=== PATIENT | male | born 1970 | race Two or more races ===

== ENCOUNTER 2023-08-02 08:17 | Emergency (ER) | payer OTHER ==
[~2023-08-02] VITALS: Ht 162.6 cm; Wt 63.5 kg
[2023-08-02] MEDS ORDERED: NORVASC2.5 M1 PO (08:31)
== END 2023-08-02 11:26 | disposition home or self-care (01) ==
LOC: ER 08:17
DX: R05.8 Other specified cough (principal); Z91.041 Radiographic dye allergy status
CPT/HCPCS: 96372; 99284; J0696; J2920

== ENCOUNTER 2023-08-24 09:43 | Emergency (ER) | payer OTHER ==
[~2023-08-24] VITALS: Ht 162.6 cm; Wt 68.9 kg
[~2023-08-24 09:43] MED LIST: NORVASC2.5 M1 PO
[2023-08-24] MEDS ORDERED: CRESTOR5 MG PO (09:59)
== END 2023-08-24 11:34 | disposition home or self-care (01) ==
LOC: ER 09:44
DX: M43.6 Torticollis (principal); Z91.041 Radiographic dye allergy status
CPT/HCPCS: 96372; 99284; J1885

== ENCOUNTER 2024-03-13 07:44 | Emergency (ER) | payer OTHER ==
[~2024-03-13] VITALS: Ht 162.6 cm; Wt 77.1 kg
[~2024-03-13 07:44] MED LIST changes: +CRESTOR5 MG PO; +INTESTINEX680 M1 PO; +PEPCID AC20 MG PO; +PRILOSEC OTC20 MG PO
[2024-03-13] MEDS ORDERED: IRBESARTAN-HCT1 EACH PO (07:55)
[2024-03-13] MEDS ORDERED: BENZONATATE 100 MG CAPSULE PO ONE (08:30)
[2024-03-13] MEDS ORDERED: CEFTRIAXONE SODIUM 2,000 MG VIAL IM ONE (08:30)
[2024-03-13] MEDS ORDERED: METHYLPREDNISOLONE SOD SUCC 40 MG VIAL IM ONE (08:30)
[2024-03-13] MEDS ORDERED: LEVALBUTEROL HCL 0.63 MG/3 ML SOLUTION IH ONE (08:30)
[2024-03-13 10:22] LABS: HEMATOCRIT 45.6 % (39.0-48.0); HEMOGLOBIN 15.7 g/dL (13-16.00); MEAN CELL VOLUME 86.9 fL (80.0-100.00); MEAN CORPUSCULAR HEMOGLOBIN 29.9 pg (27.00-32.0); MEAN CORPUSCULAR HGB CONC 34.4 g/dl (32.0-36.0); PLATELET COUNT 232 K/uL (150-450); RED BLOOD COUNT 5.25 M/uL (4.00-6.00); RED CELL DISTRIBUTION WIDTH 14.3 % (11.5-14.5)
== END 2024-03-13 11:18 | disposition home or self-care (01) ==
LOC: ER 07:45
PROVIDERS: General Practice
DX: U07.1 COVID-19 (principal); I10 Essential (primary) hypertension; Z91.041 Radiographic dye allergy status

== ENCOUNTER 2024-04-21 08:44 | Emergency (ER) | payer OTHER ==
[~2024-04-21] VITALS: Ht 162.6 cm; Wt 72.6 kg
[~2024-04-21 08:44] MED LIST changes: +IRBESARTAN-HCT1 EACH PO
[2024-04-21] MEDS ORDERED: KETOROLAC TROMETHAMINE 60 MG VIAL IM ONE ×2 (09:29→09:30)
[2024-04-21] MEDS ORDERED: ORPHENADRINE CITRATE 30 MG/ML AMPUL IM SCH (09:30)
[2024-04-21] MEDS ORDERED: ORPHENADRINE CITRATE 100 MG TABLET PO ONE (09:45)
== END 2024-04-21 10:20 | disposition home or self-care (01) ==
LOC: ER 08:45
DX: M54.50 Low back pain, unspecified (principal); I10 Essential (primary) hypertension; Z91.041 Radiographic dye allergy status

== ENCOUNTER 2024-05-10 13:18 | Outpatient (CLI) | payer OTHER | END 2024-05-10 13:28 | disposition home or self-care (01) | LOC: MRI 13:18 | PROVIDERS: ATTEND Emergency Medicine | DX: R51.9 Headache, unspecified (principal); M54.50 Low back pain, unspecified | CPT/HCPCS: 70551; 72148 ==

== ENCOUNTER 2024-10-10 08:54 | Emergency (ER) | payer OTHER ==
[~2024-10-10] VITALS: Ht 162.6 cm; Wt 77.1 kg
[~2024-10-10 08:54] MED LIST changes: +CYMBALTA30 MG PO; +DICLOFENAC POTA50 MG PO; +DULOXETINE HCL60 MG PO; +GABAPENTIN300 M2 PO; +GABAPENTIN400 MG PO
[2024-10-10 10:20] LABS: HEMATOCRIT 42.9 % (39.0-48.0); HEMOGLOBIN 14.9 g/dL (13-16.00); MEAN CELL VOLUME 87.3 fL (80.0-100.00); MEAN CORPUSCULAR HEMOGLOBIN 30.4 pg (27.00-32.0); MEAN CORPUSCULAR HGB CONC 34.8 g/dl (32.0-36.0); PLATELET COUNT 238 K/uL (150-450); RED BLOOD COUNT 4.91 M/uL (4.00-6.00)
[2024-10-10 10:48] LABS: CALCIUM 9.9 mg/dL (8.5-10.1); CREATININE SERUM 0.74 mg/dL (0.70-1.30); GFR 109.81; POTASSIUM 3.91 mEq/L (3.5-5.1)
== END 2024-10-10 11:44 | disposition home or self-care (01) ==
LOC: ER 08:57
PROVIDERS: General Practice
DX: R53.83 Other fatigue (principal); Z91.041 Radiographic dye allergy status; I10 Essential (primary) hypertension; B34.9 Viral infection, unspecified; Z20.822 Contact with and (suspected) exposure to COVID-19

== ENCOUNTER 2025-01-04 09:18 | Outpatient (CLI) | payer OTHER | END 2025-01-04 09:21 | disposition home or self-care (01) | LOC: RAD 09:18 | PROVIDERS: ATTEND Anesthesiology | DX: M25.572 Pain in left ankle and joints of left foot (principal) ==

== ENCOUNTER 2025-04-03 07:42 | Outpatient (CLI) | payer OTHER | END 2025-04-03 07:43 | disposition home or self-care (01) | LOC: NUCLEAR 07:42 | DX: I73.9 Peripheral vascular disease, unspecified (principal); I87.2 Venous insufficiency (chronic) (peripheral) ==

== ENCOUNTER 2025-05-08 10:26 | Emergency (ER) | payer OTHER ==
[~2025-05-08] VITALS: Ht 162.6 cm; Wt 84.8 kg
[2025-05-08] MEDS ORDERED: KETOROLAC TROMETHAMINE 60 MG VIAL IM ONE ×2 (11:11→11:15)
[2025-05-08] MEDS ORDERED: IBUPROFEN600 MG PO (14:51)
== END 2025-05-08 15:07 | disposition home or self-care (01) ==
LOC: ER 10:26
DX: G89.11 Acute pain due to trauma (principal); M25.532 Pain in left wrist; I10 Essential (primary) hypertension; Z91.041 Radiographic dye allergy status
CPT/HCPCS: 72100; 73110; 73501; 96372; 99283; J1885

== ENCOUNTER 2025-08-27 12:08 | Outpatient (CLI) | payer OTHER ==
[~2025-08-27 12:08] MED LIST changes: +IBUPROFEN600 MG PO
== END 2025-08-27 12:10 | disposition home or self-care (01) ==
LOC: SONOGRAMA 12:08
PROVIDERS: ATTEND Physical Medicine & Rehabilitation
DX: M25.532 Pain in left wrist (principal); S69.92XA Unspecified injury of left wrist, hand and finger(s), initial encounter